=== PATIENT | male | born 1950 | race African-American/Black ===

== ENCOUNTER → 2017-02-06 | Outpatient (CLI) | payer MEDICARE ==
[2014-02-06 11:30] VITALS: BP 104/70
[~2017-02-06] MED LIST: ALPR0.25 PO; ASPI81TA9; ATOR10TA60 PO; BUPIVACAINE MPF 0.25% 10 ML VIAL. ONE; HYDR-971 PO; IOHEXOL 180 MG/ML 10 ML VIAL. ONE; TEMA30CA6 PO; TRAM50TA PO; [UNRECOGNIZED DRUG - CODE] PO; methylPREDNISolone ACETATE 80 MG/ML VIAL. ONE
--- NOTE | 2017-02-07 02:14 | PAIN ---
DATE OF SERVICE: 02/06/2017 PROGRESS NOTE FOR PAIN CLINIC DIAGNOSES: Right hip pain with history of iliopsoas bursitis. HISTORY OF PRESENT ILLNESS: The patient is a 66-year-old male who returns for followup, last seen in 07/2015. The patient did very well, had injections in the right iliopsoas bursa, a total of 3 times beginning in March 2015 and then 2 in 07/2015. The patient reports he had near 100% improvement after the injection and was very pleased. The patient reports he has been doing very well until about the last one month. Pain has again returned now in the right hip more in the anterior aspect of the hip, worse with movement and walking, flexing of the hip forward, standing and walking. No radiation to the lower extremity significantly, some into the groin and on the right side. The patient reports a burning, aching pain, again worse with ambulation, standing about 8 on a scale of 10. The patient reports no new motor or sensory deficits, no new other changes. PHYSICAL EXAMINATION: VITAL SIGNS: Blood pressure 130/84, pulse 72, respirations are 16, temperature is 98.9 degrees Fahrenheit. Weight is 178 pounds. GENERAL: The patient is awake, alert, oriented, appropriate, very pleasant demeanor. The patient is accompanied by his spouse. HEENT: Shows normocephalic, atraumatic. Extraocular movements are intact, symmetrical. Oral cavity, mucous membranes are moist and pink. Dentition is intact. NECK: Shows anterior throat supple without palpable lymphadenopathy noted. Swallow reflex is symmetrical. CHEST: Shows normal on inspection. Breath sounds are clear to auscultation bilaterally. HEART: Shows S1 and S2 clear. ABDOMEN: Soft, nontender, nondistended. No palpable organomegaly noted. No rebound or guarding demonstrated. MUSCULOSKELETAL: The patient's back shows spine grossly in the midline. Normal appearing thoracic kyphosis, lumbar lordotic curvature. The patient shows no tenderness over the sacrum or sacroiliac regions. No tenderness over the posterior superior iliac spines. The patient's lower extremities showed deep tendon reflexes at 1+ in the patellar and tendo calcaneus tendons. Motor exam is strong with dorsiflexion, extension, quadriceps and hamstring flexion rated at 5/5 and equal with extremities. The patient's hip shows some mild clicking with hip flexion on the right side only, but not the left, good with strong 5/5 quadriceps and hamstring flexion bilaterally. The patient's peripheral pulses are 2+ posterior tibial and dorsalis pedis pulses. No peripheral edema is noted. No clubbing, no cyanosis. The patient with abduction of the right hip shows tenderness as well in the groin itself with lateral abduction. Also has pain with all his ____ standing on his right leg. There is no tenderness over the greater trochanter, but tender to deep palpation in the superior aspect of the middle quadriceps and palpation into the inguinal region on the right side, but not the left. PAST MEDICAL HISTORY: Significant for cigarette smoking, continues to smoke. Osteoarthritis. Previous history of depression. PAST SURGICAL HISTORY: Include right hip replacement. CURRENT MEDICATIONS: Updated today showing tramadol, atorvastatin, Restoril and acetaminophen, also daily baby aspirin. ALLERGIES: THE PATIENT IS ALLERGIC TO EGGS. No medication allergies. FAMILY HISTORY: Significant for hypertension, diabetes and cancer. SOCIAL HISTORY: The patient smokes about 1 pack daily. Does not drink alcohol, is not taking any illegal or illicit drugs or other substances. He is and lives with his spouse locally and is currently retired. IMPRESSION: This is a 66-year-old male with history of right total hip replacement and iliopsoas bursitis by history and physical examination today with increased pain over the past 1 month or so in the right groin and hip consistent with the iliopsoas bursitis. PLAN: Options were discussed with the patient including conservative medical management, physical therapy, interventional technique. He has done very well with interventional techniques and iliopsoas bursa injection. He would like to proceed with that today. We discussed the procedure using description as well as anatomical models to describe the procedure. Risks were then discussed including, but not limited to bleeding, infection, possibility of intravascular injection sequelae, spread of local anesthetic and numbness, side effects of steroid medications, exposure to fluoroscopy and poor results regarding pain control. The patient understands and wishes to proceed. The patient will return to clinic in approximately 2 weeks for followup, was counseled on return appointment, activity level and side effects to be aware of. SAL GALEANA MD DR: JOHN/kenij JOB#: [id number] / [id number]
== END | disposition home or self-care (01) ==
LOC: PNCL 13:47
PROVIDERS: ATTEND Anesthesiology
DX: M76.11 Psoas tendinitis, right hip (principal); F17.200 Nicotine dependence, unspecified, uncomplicated; Z96.641 Presence of right artificial hip joint; Z83.3 Family history of diabetes mellitus; Z82.49 Family history of ischemic heart disease and other diseases of the circulatory system
CPT/HCPCS: 20605; J1040; J3490

== ENCOUNTER → 2017-03-15 | Outpatient (CLI) | payer MEDICARE ==
[2014-02-06 11:30] VITALS: BP 104/70
[~2017-03-15] MED LIST changes: +ASPI-612; -ASPI81TA9; +[UNRECOGNIZED DRUG - CODE] PO; -[UNRECOGNIZED DRUG - CODE] PO; +methylPREDNISolone ACETATE 40 MG/ML VIAL. ONE
--- NOTE | 2017-03-16 05:04 | PAIN ---
DATE OF SERVICE: 03/15/2017 DIAGNOSES: Right hip joint pain with right iliopsoas bursitis. HISTORY OF PRESENT ILLNESS: The patient is a 66-year-old male who returns for followup status post right iliopsoas bursa injection, most recently on 02/06/2015. The patient reports he did very well with about 85-90% improvement in the right hip pain, but it is now returning. He is still exercising at the gym 3 times a week and walking 2 miles a day every other day. The patient reports the pain is a 5 on a scale of 10. He is doing better, but the pain is still there, although it is minimal it is still present. It is a sharp, aching pain in the right groin and hip itself with occasional radiation in the anterior thigh. The patient reports no new motor or sensory deficits, no new bowel or bladder incontinence or other complaints. He is very pleased with his progress thus far. He has been increasing his daily activity with greater ease and comfort, sleeping well at night, feels much better when he is lying down or sitting. The pain is only present with standing, walking, or putting all his weight on his right leg such as climbing stairs. PHYSICAL EXAMINATION: VITAL SIGNS: Today, the patient's blood pressure is 126/75, pulse 74, respirations 18, temperature is 98.1 degrees Fahrenheit. Height is 5 feet 11 inches, weight is 174 pounds. GENERAL: The patient is awake, alert, oriented, appropriate, very pleasant demeanor. HEENT: Shows normocephalic and atraumatic. Extraocular movements are intact and symmetrical. Oral cavity shows mucous membranes are moist and pink. Dentition is intact. NECK: Shows anterior throat supple without palpable lymphadenopathy noted. Swallow reflex is symmetrical. CHEST: Shows normal on inspection. Breath sounds are clear to auscultation bilaterally. HEART: Shows S1 and S2 clear. ABDOMEN: Soft, nontender, nondistended. BACK: Shows spine grossly in the midline with good rotational motion of the lumbar spine, both laterally as well as extension and flexion. EXTREMITIES: The patient's lower extremities showed deep tendon reflexes 1+ in the patellar and tendo calcaneus tendons. Motor exam is strong with 5/5 dorsiflexion, extension, quadriceps and hamstring flexion. The patient has some tenderness with right hip flexion on the right side as well as with external rotation and tenderness with direct palpation over the anterior aspect of the hip joint itself, but only very mildly. Options were discussed with the patient. The patient's old chart was reviewed as his current medication regimen and updated. Current review of systems updated today as well. He would like to proceed with a repeat right hip iliopsoas bursa injection. Risks were again discussed including but not limited to bleeding, infection, possibility of intravascular injection sequelae, spread of local anesthetic and numbness, side effects of steroid medications, exposure to fluoroscopy and poor results regarding pain control. The patient understands and wishes to proceed. The patient will return to the clinic in approximately 2 weeks for followup. He was counseled on his return appointment, activity level and side effects to be aware of. DIAGNOSIS: Right iliopsoas bursitis. PROCEDURE: Right iliopsoas bursa injection with C-arm fluoroscopic guidance under sterile prep and drape using local anesthetic. MEDICATIONS INJECTED: A total of 80 mg of Depo-Medrol plus a total of 2 mL of 0.25% bupivacaine with negative aspiration and 3 mL of Isovue for contrast. CONDITION AT DISCHARGE: Stable. The patient tolerated the procedure well, had no complications. SAL GALEANA MD DR: JOHN/kenji JOB#: [id number] / [id number]
== END | disposition home or self-care (01) ==
LOC: PNCL 08:38
PROVIDERS: ATTEND Anesthesiology
DX: M71.551 Other bursitis, not elsewhere classified, right hip (principal); Z96.641 Presence of right artificial hip joint; Z86.69 Personal history of other diseases of the nervous system and sense organs; Z86.73 Personal history of transient ischemic attack (TIA), and cerebral infarction without residual deficits
CPT/HCPCS: 20610; 77002; J1040; J3490; J1030

== ENCOUNTER → 2017-05-01 | Outpatient (CLI) | payer MEDICARE ==
[2014-02-06 11:30] VITALS: BP 104/70
[~2017-05-01] MED LIST changes: -BUPIVACAINE MPF 0.25% 10 ML VIAL. ONE; -IOHEXOL 180 MG/ML 10 ML VIAL. ONE; -methylPREDNISolone ACETATE 40 MG/ML VIAL. ONE; -methylPREDNISolone ACETATE 80 MG/ML VIAL. ONE
== END | disposition home or self-care (01) ==
LOC: LAB 10:50
PROVIDERS: ATTEND Nurse Practitioner Gerontology
DX: M25.551 Pain in right hip (principal)
CPT/HCPCS: 36415; 85651; 86141

== ENCOUNTER → 2018-10-30 | Outpatient (CLI) | payer MEDICARE ==
[2014-02-06 11:30] VITALS: BP 104/70
[~2018-10-30] MED LIST changes: +HYDR-3164 PO; -HYDR-971 PO
--- NOTE | 2018-10-30 09:09 | KCIC ---
ABDOMEN COMPLETE History: Abdominal pain for 2 days Comparison: None. Findings: Multiple sonographic images of the abdomen are submitted. Pancreas is suboptimally visualized, no obvious abnormality demonstrated in this region. Gallbladder is present, internal echogenicity compatible with mobile cholelithiasis. Gallbladder wall thickness is within normal limits about 0.2 cm. There is no demonstrable pericholecystic fluid. Right kidney measured 10.1 x 4.6 x 4.8 cm, no hydronephrosis. Left kidney measured 10.8 x 5 x 5.6 m, no hydronephrosis. There is mild coarsening of the echotexture of the liver. No focal hepatic lesion is demonstrated. Right lobe of the liver measured 16 cm longitudinal. Spleen measured 9.1 cm. No free fluid is demonstrated. There is limited segmental visualization of the inferior vena cava. Abdominal aortic caliber is within normal limits in greatest dimension about 2.3 cm proximally, poorly visualized near the mid segment due to bowel gas. Common bile duct is within normal limits about 0.3 cm. Impression: 1. There is cholelithiasis, no biliary ductal dilatation. There may be mild hepatic steatosis. Midline structures are poorly visualized due to bowel gas. Electronically signed by: Regan Boyer MD (10/30/2018 9:04 AM) [facility]
== END | disposition home or self-care (01) ==
LOC: KCIC US 08:19
PROVIDERS: ATTEND Family Medicine
DX: K80.20 Calculus of gallbladder without cholecystitis without obstruction (principal)
CPT/HCPCS: 76700

== ENCOUNTER 2018-11-25 05:53 | Day surgery (SDC) | payer MEDICARE ==
[~2018-11-25] VITALS: Ht 180.3 cm; Wt 80.3 kg
[~2018-11-25 05:53] MED LIST changes: +ASPI81TA50 PO; +DICL75TA PO; +LISI-334 PO; +TAMS0.4C97 PO; +TIZA4TAB PO
[2018-11-25 06:44] LABS: BASO % 0 % (0-3); EOS # 0.3 x10^3/uL (0.0-0.7); EOS % 7 % (0-3); HEMATOCRIT 36.6 % (39.0-53.0); HEMOGLOBIN 12.1 g/dL (13.0-17.5); LYMPH # 2.6 x10^3/uL (1.0-4.8); LYMPH % 49 % (24-48); MEAN CORPUSCULAR HEMOGLOBIN 31 pg (25-35); MEAN CORPUSCULAR HGB CONC 33 g/dL (31-37); MEAN CORPUSCULAR VOLUME 93 fL (79-100); MONO # 0.5 x10^3/uL (0.0-1.1); MONO % 9 % (0-9); NEUT # 1.9 x10^3uL (1.8-7.7); NEUT % 36 % (31-73); PLATELET COUNT 220 x10^3/uL (140-400); RED BLOOD COUNT 3.94 x10^6/uL (4.30-5.70); WHITE BLOOD COUNT 5.3 x10^3/uL (4.0-11.0)
[2018-11-25] MEDS ORDERED: LIDOCAINE 2% PF Vial for OR 5 ML VIAL. ONE (06:49)
[2018-11-25] MEDS ORDERED: ONDANSETRON PF 4 MG/2 ML VIAL. ONE (06:49)
[2018-11-25] MEDS ORDERED: ROCURONIUM 50 MG/5 ML VIAL. ONE (06:49)
[2018-11-25] MEDS ORDERED: PROPOFOL 0 ML IV ONE (06:49)
[2018-11-25] MEDS ORDERED: DEXAMETHASONE SOD PHOS 20 MG/5 ML VIAL. ONE (06:49)
[2018-11-25] MEDS ORDERED: ETOMIDATE 20 MG/10 ML VIAL. IV ONE (06:57)
[2018-11-25] MEDS ORDERED: fentaNYL PF VIAL 100 MCG/2 ML VIAL ONE (06:58)
[2018-11-25] MEDS ORDERED: MIDAZOLAM HCL/PF 2 MG/2 ML VIAL. ONE (06:59)
[2018-11-25] MEDS ORDERED: BUPIVAC MPF-EPI 0.5%-1:200000 30 ML VIAL. ONE (07:00)
[2018-11-25] MEDS ORDERED: IOHEXOL 300 MG/ML 100ML VIAL. ONE (07:00)
[2018-11-25] MEDS ORDERED: SURGICEL HEMOSTAT 4X8 EACH. ONE (07:00)
[2018-11-25] MEDS ORDERED: HYDROmorphone 2 MG/ML VIAL IV PRN (07:00)
[2018-11-25] MEDS ORDERED: MORPHINE SULFATE 2 MG/ML VIAL. IV PRN (07:00)
[2018-11-25] MEDS ORDERED: PROCHLORPERAZINE 10 MG/2 ML VIAL. IV PRN (07:00)
[2018-11-25] MEDS ORDERED: fentaNYL PF VIAL 100 MCG/2 ML VIAL IV PRN (07:00)
[2018-11-25] MEDS ORDERED: ONDANSETRON PF 4 MG/2 ML VIAL. IV PRN (07:00)
[2018-11-25] MEDS ORDERED: LIDOCAINE 1% PF 2 ML VIAL. ID PRN (07:00)
[2018-11-25] MEDS ORDERED: IV RINGERS,LACTATED 1000ML 1,000 ML IV SCH (07:00)
[2018-11-25] MEDS ORDERED: NEOSTIGMINE 10 MG/10 ML VIAL. ONE (08:27)
[2018-11-25] MEDS ORDERED: GLYCOPYRROLATE 1 MG/5 ML VIAL. ONE (08:28)
[2018-11-25] MEDS ORDERED: SEVOFLURANE 61 TO 120 MINUTES. IH ONE (08:30)
--- NOTE | 2018-11-25 09:08 | RAD ---
Intraoperative cholangiogram, 11/25/2018: HISTORY: Cholecystectomy 3 spot films from surgery are presented for review. Contrast has been injected into the cystic duct remnant. 25 seconds of fluoroscopy time was utilized. There is good flow of contrast into the duodenum at the ampulla. No filling defect is seen in the common duct to suggest a retained calculus. The incompletely opacified intrahepatic ducts are unremarkable. No contrast extravasation is seen. IMPRESSION: No significant abnormality is detected. Electronically signed by: Rico Rader MD (11/25/2018 9:05 AM) [facility]
--- NOTE | 2018-11-25 09:17 | DISCH ---
DISCHARGE INSTRUCTIONS Condition on Discharge Condition on Discharge: Unstable Activity After Discharge Activity Instructions for Disc: Other, see below (no lifting over 20 lbs X 2 weeks) Diet after Discharge Diet after Discharge: Regular Wound Incision Care Wound/Incision Care: Other, see below (may remove bandaids tomorrow and shower) Follow-Up Follow up with: Dr Hickey in 2 weeks in office, call for appt [phone] LU HICKEY MD Nov 25, 2018 09:17
--- NOTE | 2018-11-25 09:18 | PDOC4 ---
Operative Note Operative Note Operative Note: Preoperative Diagnosis: Calculus cholecystitis Postoperative Diagnosis: Same Procedure: Laparoscopic cholecystectomy with intraoperative cholangiogram Surgeons: Oseas Anesthesia: Gen. Estimated Blood Loss: 10 mL Specimen: Gallbladder to pathology Drains: None Complications: None Indications: The patient is a 67-year-old male who is been experiencing recurrent upper abdominal pain consistent with biliary colic. Surgical treatment was offered by means of a laparoscopic cholecystectomy. The risks of surgery were discussed which include bleeding, infection, bile duct injury, bile leak, pain, the potential for additional surgeries or procedures. The patient understands and would like to proceed. Description: The patient was taken to the operating room and laid supine on the operating table. General anesthesia was performed. The abdomen was prepped with ChloraPrep and draped in a standard surgical fashion. A small infraumbilical incision was made with a scalpel. The Veress needle was then inserted and a pneumoperitoneum was then created. A 5 mm trocar was then inserted and the laparoscope was introduced. In the upper midabdomen a 5 mm trocar was inserted and in the right upper quadrant two 2.3 mm mini lap graspers were inserted. The gallbladder was retracted cephalad. The cystic duct was dissected free from surrounding tissues. One clip was placed on the duct near the gallbladder junction. An opening was made in the duct and a cholangiocatheter placed within and secured with a clip. Using contrast dye and fluoroscopy an intraoperative cholangiogram was performed that appeared unremarkable. The clip and catheter were then withdrawn. Three clips were placed on the cystic duct and it was divided. The cystic artery was then identified, dissected free, doubly clipped and divided as well. The gallbladder was then mobilized away from the liver with cautery. The umbilical 5 millimeter trocar was exchanged for an 11 millimeter trocar. The gallbladder was then placed in an endoscopic bag and extracted at the umbilical trocar site. The fascia there was closed with an 0 Vicryl suture. All blood and irrigation fluid was suctioned and hemostasis was good. The remaining ports were removed and the pneumoperitoneum was relieved. The skin incisions were injected with half percent Marcaine with epinephrine, and all were closed using 4-0 Monocryl suture. Steri-Strips and dressings were then applied. The patient tolerated the procedure well and was sent to the recovery room in stable condition. At the end of the case all counts were correct. LU HICKEY MD Nov 25, 2018 09:18
[2018-11-25] MEDS: fentaNYL PF VIAL 100 MCG/2 ML VIAL IV PRN ×2 (09:30→09:59)
[2018-11-25] MEDS ORDERED: HYDR-3164 PO (09:45)
[2018-11-25] MEDS ORDERED: HYDROcodone/APAP 5/325MG 1 TAB TABLET ONE (10:05)
[2018-11-25] MEDS ORDERED: HYDROcodone/APAP 5/325MG 1 TAB TABLET PO ONE (10:30)
[2018-11-25] MEDS ORDERED: MORPHINE SULFATE 4 MG/ML VIAL. ONE (10:45)
[2018-11-25 10:47] VITALS: BP 126/79
--- NOTE | 2018-11-26 17:08 | PATHOLOGY ---
[facility] Accession Number: [id number] . 01 Material submitted: . GALLBLADDER . 01 Clinical history: . Cholelithiasis . 02 Diagnosis: Gallbladder, laparoscopic cholecystectomy: - Cholelithiasis. - Chronic cholecystitis. [facility]/11/26/2018 . 02 Comment: There is no evidence of malignancy. (JPM:[facility] 11/26/2018) . 02 Electronically signed: . Niall Traore MD, Pathologist NPI- [id number] . 01 Gross description: . The specimen is received in formalin, labeled "Mukund, Jimmy, gallbladder" and consists of an intact green-britt and wrinkled gallbladder measuring 8.2 x 3.1 x 2.0 cm. The margin is inked black. Opening reveals a lumen filled with tenacious green bile and multiple black spiculated calculi measuring 2.0 x 1.3 x 0.4 cm in aggregate. The mucosa is green and granular with focal wall thinning. The wall averages 0.1 cm and no masses or lesions are identified. Clinical Account Executive sections are submitted in A1. (SDY; 11/25/2018) SYU/SYU . 02 Pathologist provided ICD-10: K80.10 . 02 CPT . 554120 Specimen Comment: A courtesy copy of this report has been sent to Specimen Comment: [phone], . Specimen Comment: Report sent to / DR ADAMES Specimen Comment: A duplicate report has been generated due to demographic updates. Performed at: 01 [facility] [address], [place], [place] [id number] MD Kvng Corbin MD Phone: [phone] Performed at: 02 [facility] [address] [place], [place] [id number] MD Niall Traore MD Phone: [phone]
== END 2018-11-25 10:58 | disposition home or self-care (01) ==
LOC: SURG 05:53
PROVIDERS: ATTEND Surgery
DX: K80.10 Calculus of gallbladder with chronic cholecystitis without obstruction (principal); I10 Essential (primary) hypertension; E78.5 Hyperlipidemia, unspecified; Z86.73 Personal history of transient ischemic attack (TIA), and cerebral infarction without residual deficits; Z91.012 Allergy to eggs; Z79.82 Long term (current) use of aspirin; Z79.899 Other long term (current) drug therapy; Z96.641 Presence of right artificial hip joint; Z82.3 Family history of stroke; Z87.891 Personal history of nicotine dependence
CPT/HCPCS: 36415; 47563; 74300; 85025; A7015; J0696; J1100; J2001; J2250; J2270; J2405; J2710; J3010; J3490; J7030; J7120; Q9967; J2704